=== PATIENT | male | born 2000 | race African-American/Black ===

== ENCOUNTER 2025-07-03 12:08 | Emergency (ER) | payer MEDICARE, MEDICAID ==
[~2025-07-03] VITALS: Ht 182.9 cm; Wt 60.0 kg
[2025-07-03 12:13] VITALS: O2SAT 98
[2025-07-03 12:38] VITALS: BP 112/68; PULSE 105; RESP 16; TEMP 36.7; O2SAT 98
== END 2025-07-03 14:21 | disposition left against medical advice (07) ==
LOC: ER 12:08
DX: S61.219A Laceration without foreign body of unspecified finger without damage to nail, initial encounter (principal); Z53.21 Procedure and treatment not carried out due to patient leaving prior to being seen by health care provider; X58.XXXA Exposure to other specified factors, initial encounter; Y93.89 Activity, other specified; Y92.89 Other specified places as the place of occurrence of the external cause; Y99.8 Other external cause status
CPT/HCPCS: 99281